=== PATIENT | female | born 1985 | race Caucasian/White ===

== ENCOUNTER 2019-03-02 19:06 | Emergency (ER) | payer SELFPAY ==
[2019-03-02 20:59] LABS: ADD MAN DIFF? NO
[2019-03-02 21:01] LABS: BASOPHILS % 0.4 % (0.0-2.0); EOSINOPHILS # 0.1 10^3/ul (0.0-0.5); EOSINOPHILS % 0.8 % (0.0-7.0); HEMATOCRIT 39.2 % (37.0-47.0); HEMOGLOBIN 12.7 g/dl (12.0-16.0); LYMPHOCYTES # 2.3 10^3/ul (0.8-2.9); LYMPHOCYTES % 25.1 % (15.0-51.0); MEAN CORPUSCULAR HEMOGLOBIN 30.8 pg (29.0-33.0); MEAN CORPUSCULAR HGB CONC 32.4 g/dl (32.0-37.0); MEAN CORPUSCULAR VOLUME 95.1 fl (82.0-101.0); MEAN PLATELET VOLUME 9.6 fl (7.4-10.4); MONOCYTE # 0.4 10^3/ul (0.3-0.9); MONOCYTES % 3.9 % (0.0-11.0); NEUTROPHIL # 6.3 10^3/ul (1.6-7.5); NEUTROPHILS % 69.4 % (39.0-77.0); PLATELET COUNT 275 10^3/UL (140-415); RED BLOOD COUNT 4.12 10^6/ul (4.20-5.40); RED CELL DISTRIBUTION WIDTH 13.7 % (11.5-14.5)
[2019-03-02 21:06] LABS: ADD UMIC YES; UR ASCORBIC ACID 40 mg/dL (NEGATIVE); UR BILIRUBIN (Dip) NEGATIVE (NEGATIVE); UR BLOOD (Dip) 1+ mg/dL (NEGATIVE); UR CLARITY SLIGHTLY CLOUDY (CLEAR); UR COLOR YELLOW (YELLOW); UR GLUCOSE (Dip) NEGATIVE (NEGATIVE); UR KETONES (Dip) NEGATIVE (NEGATIVE); UR LEUKOCYTE ESTERASE (Dip) 1+ Leu/ul (NEGATIVE); UR NITRITE (Dip) NEGATIVE (NEGATIVE); UR RBC 4 /HPF (0-5); UR SPECIFIC GRAVITY (Dip) 1.023 (1.003-1.030); UR SQUAMOUS EPITHELIAL CELL FEW /HPF (FEW); UR TOTAL PROTEIN (Dip) NEGATIVE (NEGATIVE); UR UROBILINOGEN (Dip) NEGATIVE (NEGATIVE); UR WBC 2 /HPF (0-5)
[2019-03-02 21:20] LABS: ALANINE AMINOTRANSFERASE 20 IU/L (13-69); ALBUMIN 4.6 g/dl (3.3-4.9); ALBUMIN/GLOBULIN RATIO 1.48; ALKALINE PHOSPHATASE 71 IU/L (42-121); ANION GAP 12 (5-13); ASPARTATE AMINO TRANSFERASE 24 IU/L (15-46); BILIRUBIN,INDIRECT 0.4 mg/dl (0-1.1); BILIRUBIN,TOTAL 0.4 mg/dl (0.2-1.3); BLOOD UREA NITROGEN 8 mg/dl (7-20); CALCIUM 9.3 mg/dl (8.4-10.2); CARBON DIOXIDE 24 mmol/L (21-31); CHLORIDE 106 mmol/L (97-110); Estimated GFR > 60 mL/min (>60); GLUCOSE 124 mg/dl (70-220); POTASSIUM 3.5 mmol/L (3.5-5.1); SODIUM 142 mmol/L (135-144); TOTAL PROTEIN 7.7 g/dl (6.1-8.1)
== END 2019-03-02 22:55 | disposition home or self-care (01) ==
LOC: FTE 19:06
DX: O20.9 Hemorrhage in early pregnancy, unspecified (principal); O10.011 Pre-existing essential hypertension complicating pregnancy, first trimester; O99.281 Endocrine, nutritional and metabolic diseases complicating pregnancy, first trimester; O23.41 Unspecified infection of urinary tract in pregnancy, first trimester; R10.2 Pelvic and perineal pain; E03.9 Hypothyroidism, unspecified; Z3A.09 9 weeks gestation of pregnancy
CPT/HCPCS: 36415; 76801; 80053; 81001; 84702; 85025; 99284-25

== ENCOUNTER → 2019-03-11 | Emergency (ER) | payer MEDICAID ==
[2019-03-11 10:33] LABS: ADD UMIC YES; UR ASCORBIC ACID 40 mg/dL (NEGATIVE); UR BACTERIA FEW /HPF (NONE SEEN); UR BILIRUBIN (Dip) NEGATIVE (NEGATIVE); UR BLOOD (Dip) NEGATIVE (NEGATIVE); UR CLARITY SLIGHTLY CLOUDY (CLEAR); UR COLOR AMBER (YELLOW); UR GLUCOSE (Dip) NEGATIVE (NEGATIVE); UR KETONES (Dip) TRACE mg/dL (NEGATIVE); UR LEUKOCYTE ESTERASE (Dip) 1+ Leu/ul (NEGATIVE); UR MUCUS FEW /HPF (NONE SEEN); UR NITRITE (Dip) NEGATIVE (NEGATIVE); UR RBC 3 /HPF (0-5); UR SQUAMOUS EPITHELIAL CELL FEW /HPF (FEW); UR TOTAL PROTEIN (Dip) NEGATIVE (NEGATIVE); UR UROBILINOGEN (Dip) NEGATIVE (NEGATIVE); UR WBC 2 /HPF (0-5)
[2019-03-11 10:54] LABS: ADD MAN DIFF? NO
[2019-03-11 10:56] LABS: BASOPHILS % 0.4 % (0.0-2.0); EOSINOPHILS # 0.1 10^3/ul (0.0-0.5); EOSINOPHILS % 0.6 % (0.0-7.0); HEMATOCRIT 40.4 % (37.0-47.0); HEMOGLOBIN 13.1 g/dl (12.0-16.0); LYMPHOCYTES # 1.7 10^3/ul (0.8-2.9); LYMPHOCYTES % 18.9 % (15.0-51.0); MEAN CORPUSCULAR HGB CONC 32.4 g/dl (32.0-37.0); MEAN CORPUSCULAR VOLUME 95.5 fl (82.0-101.0); MEAN PLATELET VOLUME 9.7 fl (7.4-10.4); MONOCYTE # 0.3 10^3/ul (0.3-0.9); MONOCYTES % 3.8 % (0.0-11.0); NEUTROPHIL # 6.8 10^3/ul (1.6-7.5); PLATELET COUNT 273 10^3/UL (140-415); RED BLOOD COUNT 4.23 10^6/ul (4.20-5.40); RED CELL DISTRIBUTION WIDTH 13.7 % (11.5-14.5)
== END | disposition home or self-care (01) ==
LOC: FTE 10:04
DX: O20.0 Threatened abortion (principal); O10.011 Pre-existing essential hypertension complicating pregnancy, first trimester; O99.281 Endocrine, nutritional and metabolic diseases complicating pregnancy, first trimester; E03.9 Hypothyroidism, unspecified; Z3A.12 12 weeks gestation of pregnancy
CPT/HCPCS: 36415; 76801; 76817; 81001; 84702; 85025; 86900; 86901; 99284-25

== ENCOUNTER 2019-04-12 02:24 | Inpatient (IN) | payer MEDICAID, OTHER ==
[2019-04-12 02:53] LABS: ADD MAN DIFF? NO
[2019-04-12 02:54] LABS: WHITE BLOOD COUNT 11.1 10^3/ul (4.8-10.8)
[2019-04-12 02:54] LABS: BASOPHILS % 0.3 % (0.0-2.0); EOSINOPHILS # 0.2 10^3/ul (0.0-0.5); EOSINOPHILS % 1.4 % (0.0-7.0); HEMATOCRIT 38.6 % (37.0-47.0); HEMOGLOBIN 12.6 g/dl (12.0-16.0); LYMPHOCYTES # 2.6 10^3/ul (0.8-2.9); LYMPHOCYTES % 23.3 % (15.0-51.0); MEAN CORPUSCULAR HGB CONC 32.6 g/dl (32.0-37.0); MEAN CORPUSCULAR VOLUME 95.1 fl (82.0-101.0); MEAN PLATELET VOLUME 9.9 fl (7.4-10.4); MONOCYTE # 0.5 10^3/ul (0.3-0.9); MONOCYTES % 4.5 % (0.0-11.0); NEUTROPHIL # 7.8 10^3/ul (1.6-7.5); PLATELET COUNT 278 10^3/UL (140-415); RED BLOOD COUNT 4.06 10^6/ul (4.20-5.40); RED CELL DISTRIBUTION WIDTH 13.3 % (11.5-14.5)
[2019-04-12] MEDS: SOD CHLORIDE 0.9% 1,000 ML IV (03:04)
[2019-04-12] MEDS: OXYTOCIN 30 UNITS/LR 500 ML IVPB (03:04)
[2019-04-12 03:13] LABS: ALANINE AMINOTRANSFERASE 14 IU/L (13-69); ALBUMIN 3.7 g/dl (3.3-4.9); ALBUMIN/GLOBULIN RATIO 0.94; ALKALINE PHOSPHATASE 68 IU/L (42-121); ANION GAP 8 (5-13); ASPARTATE AMINO TRANSFERASE 38 IU/L (15-46); BILIRUBIN,INDIRECT 0.4 mg/dl (0-1.1); BILIRUBIN,TOTAL 0.4 mg/dl (0.2-1.3); BLOOD UREA NITROGEN 6 mg/dl (7-20); CALCIUM 9.8 mg/dl (8.4-10.2); CARBON DIOXIDE 22 mmol/L (21-31); CHLORIDE 105 mmol/L (97-110); CREATININE 0.55 mg/dl (0.44-1.00); Estimated GFR > 60 mL/min (>60); GLUCOSE 121 mg/dl (70-220); POTASSIUM 4.7 mmol/L (3.5-5.1); SODIUM 135 mmol/L (135-144); TOTAL PROTEIN 7.6 g/dl (6.1-8.1)
[2019-04-12 03:14] LABS: INR 1.03; PROTIME 13.6 Sec (11.9-14.9); PT RATIO 1.1
[2019-04-12 03:15] LABS: PARTIAL THROMBOPLASTIN TIME 24.7 Sec (23.0-35.0)
[2019-04-12] MEDS ORDERED: ACETAMINOPHEN 325 MG TAB PO ×2 (05:00→07:00)
[2019-04-12] MEDS ORDERED: ONDANSETRON 4 MG INJ IV (05:00)
[2019-04-12] MEDS: morphine 4 MG/ML VIAL IV (05:48)
[2019-04-12] MEDS: HYDROmorphONE 1 MG/ML SYG IV ×2 (07:39→14:15)
[2019-04-12 07:52] LABS: ADD MAN DIFF? NO
[2019-04-12 07:54] LABS: WHITE BLOOD COUNT 13.1 10^3/ul (4.8-10.8)
[2019-04-12 07:54] LABS: BASOPHILS % 0.2 % (0.0-2.0); EOSINOPHILS % 0.2 % (0.0-7.0); HEMATOCRIT 32.4 % (37.0-47.0); HEMOGLOBIN 10.6 g/dl (12.0-16.0); LYMPHOCYTES # 1.3 10^3/ul (0.8-2.9); LYMPHOCYTES % 10.1 % (15.0-51.0); MEAN CORPUSCULAR HEMOGLOBIN 31.2 pg (29.0-33.0); MEAN CORPUSCULAR HGB CONC 32.7 g/dl (32.0-37.0); MEAN CORPUSCULAR VOLUME 95.3 fl (82.0-101.0); MONOCYTE # 0.5 10^3/ul (0.3-0.9); MONOCYTES % 3.6 % (0.0-11.0); NEUTROPHIL # 11.2 10^3/ul (1.6-7.5); NEUTROPHILS % 85.4 % (39.0-77.0); PLATELET COUNT 248 10^3/UL (140-415); RED CELL DISTRIBUTION WIDTH 13.5 % (11.5-14.5)
[2019-04-12 08:16] LABS: INR 1.17; PT RATIO 1.2
[2019-04-12 08:17] LABS: PARTIAL THROMBOPLASTIN TIME 28.1 Sec (23.0-35.0)
[2019-04-12] MEDS ORDERED: OXYTOCIN IV (11:15)
[2019-04-12] MEDS ORDERED: DEXTROSE 5% IV (11:15)
[2019-04-12] MEDS ORDERED: [UNRECOGNIZED DRUG - OTHER] IV (11:15)
[2019-04-12] MEDS: MISOPROSTOL 200 MCG TAB PO (12:26)
== END 2019-04-12 17:45 | disposition home or self-care (01) | DRG 779 ==
LOC: E/R 02:24 → PP2 04:38 → L-D 09:30
DX: O03.9 Complete or unspecified spontaneous abortion without complication (principal)
CPT/HCPCS: 36415; 76801; 80053; 84702; 85025; 85610; 85730; 86850; 86900; 86901; 88300; 88304; 88307; 96365; 96366; 99285-25